=== PATIENT | male | born 1970 | race Caucasian/White ===

== ENCOUNTER 2020-01-06 16:14 | Outpatient (CLI) | payer SELFPAY | END 2020-01-06 16:15 | disposition EMS.NT | LOC: EMS 16:14 | PROVIDERS: ATTEND Surgery | DX: M54.9 Dorsalgia, unspecified (principal); V28.4XXA Motorcycle driver injured in noncollision transport accident in traffic accident, initial encounter; Y92.410 Unspecified street and highway as the place of occurrence of the external cause ==

== ENCOUNTER 2020-08-05 12:09 | Outpatient (CLI) | payer OTHER ==
[2020-08-05 17:59] LABS: BASOPHILS # (AUTO) 0.1 10^3/uL (0.0-0.1); BASOPHILS % (AUTO) 0.8 %; EOSINOPHILS # (AUTO) 0.2 10^3/uL (0.0-0.7); EOSINOPHILS % (AUTO) 2.2 %; HGB - HEMOGLOBIN 15.4 g/dL (14.0-18.0); LYMPHOCYTES % (AUTO) 23.3 %; MEAN CORPUSCULAR HEMOGLOBIN 33.5 pg (27.0-31.0); MEAN CORPUSCULAR HGB CONC 33.7 g/dL (32.0-36.0); MEAN CORPUSCULAR VOLUME 99.3 fL (80.0-94.0); MEAN PLATELET VOLUME 10.5 fL (7.4-11.4); MONOCYTES # (AUTO) 0.4 10^3/uL (0.0-1.0); MONOCYTES % (AUTO) 4.8 %; NEUTROPHILS % (AUTO) 68.6 %; PLT - PLATELET COUNT 248 10^3/uL (130-450); WHITE BLOOD COUNT 8.7 x10^3/uL (4.8-10.8)
[2020-08-05 18:15] LABS: ALBUMIN 4.3 g/dL (3.2-5.5); ALBUMIN/GLOBULIN RATIO 1.9 (1.0-2.2); BILIRUBIN,TOTAL 0.6 mg/dL (0.2-1.0); CALCIUM 9.2 mg/dL (8.5-10.3); TOTAL PROTEIN 6.6 g/dL (6.7-8.2)
[2020-08-05 20:30] LABS: HEMOGLOBIN A1c% 5.4 % (4.27-6.07)
== END 2020-08-05 23:59 | disposition home or self-care (01) ==
LOC: LAB.N 12:09
PROVIDERS: ATTEND Nurse Practitioner
DX: R42 Dizziness and giddiness (principal)
CPT/HCPCS: 36415; 80053; 83036; 85025

== ENCOUNTER 2020-09-01 16:05 | Outpatient (CLI) | payer OTHER ==
[2020-09-01 16:57] VITALS: BP 120/92
--- NOTE | 2020-09-01 16:57 | SLEEP CARE CONSULTATION ---
Information from patient questionnaire entered by Sammie Paul. I have reviewed and concur with the information entered by Sammie Paul. This document represents the service I personally performed and the decisions made by me, Yolanda Arredondo ARNP. History of Present Illness Service Date and Time: 09/01/2020 1605 Reason for Visit: New patient Chief Complaint: reports: Unrefreshed sleep, Snoring, Excessive daytime sleepiness, Observed pauses in breathing, Fatigue Date of Onset: Years Usual bedtime: 8 PM Time it takes to fall asleep: 30 mins Snores at night: Yes Observed to quit breathing while asleep: Yes Sleeps alone due to snoring: No Number of times waking at night: 2 - 3 Reasons for waking at night: reports: Choking, Gasping for air Toss, Turn, or Twitch while sleeping: Yes Recalls having dreams: Yes Usually gets out of bed at: 430 - 5 AM Feels refreshed in the morning: No Morning headache: Yes (just about every morning) Sleepy or fatigued during the day: Yes Ever fallen asleep while driving: No Takes day naps: No Dreams during day naps: No Prior sleep studies: No Additional HPI information: I had the pleasure of seeing DAVIN LERMA today regarding the possibility of him having a sleep disorder. His current complaints are insomnia, loud snoring, observed pauses in breathing, unrefreshed sleep, excessive daytime sleepiness and fatigue. He was not feeling well last week with some lightheadedness, etc and was evaluated at clinic. He was talking to them about his sleep, waking up frequently for no apparent reason, some gasping at night occasionally that reso lves in about 30 seconds as well as some restless legs. It freaks him and his out when he gasps for air. His doctor told him he was overweight as well. He does not wake up feeling rested and is tired throughout the day. He was referred for possible sleep apnea. 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 Patient is and lives in [place]. Have you smoked in the past 12 months: Yes Cigarettes per day (20/pack): 15 Years of smokin Smoking Pack Years: 21.0 Alcohol use: Yes Alcohol amount and frequency: rarely Caffeine use: Yes Caffeine amount and frequency: 4 cups/energy drink Family History Family history of sleep disordered breathing: Yes (Dad) Family Hx Sleep Apnea: Father: Sleep apnea - Treated Allergies and Home Medications Drug allergies reviewed: Yes (NKDA) Home medication list reviewed: Yes (no medications) Review of Systems Weight gain over past 5 years: 10 Weight loss over past 5 years: 0 Cardiovascular: denies: high blood pressure Gastrointestinal: reports: heartburn Neurological: reports: headaches Psychiatric: reports: anxiety, depression, mood disorder (can get set off by small things) Ear/Nose/Throat: reports: wisdom teeth removed. denies: tonsillectomy Endocrine: denies: thyroid disease Immunologic: denies: allergies to food or environment Physical Exam Blood Pressure: 120/92 Cuff size: long Heart Rate: 73 O2 Saturation: 99 Height: 6 ft Weight: 218 lb Body Mass Index: 29.5 BMI Classification: Overweight Neck circumference: 15 (inches) Nostrils: patent to airflow Turbinates: normal Mouth and throat: narrow oropharynx Soft palate: long Hard palate: normal Uvula: normal Uvula visualization: 50% Mallampati Class II Tongue: enlarged in size with teeth kathleen on lateral edges Tonsils: 1+ Neck: normal w/o lymphadenopathy or thyromegaly Heart: regular rate and rhythm Lungs: clear bilaterally Impression and Plan 1. Suspected Obstructive Sleep Apnea-Hypopnea Syndrome, as suggested by a history of loud and irregular snoring, observed cessation of breath while asleep, gasping or choking in sleep, morning headache, frequent awakening during the night, unrefreshed sleep, and excessive daytime sleepiness. Narrow oropharynx and obesity are common predisposing factors for obstructive sleep apnea-hypopnea syndrome. I recommend proceeding to polysomnography to confirm the diagnosis and to assess severity. If the patient has significant sleep disordered breathing, a manual CPAP titration study will also be performed to find the optimal treatment pressure. I informed the patient of what the sleep studies involve and after some discussion, obtained agreement to proceed. The pathophysiology of obstructive sleep apnea-hypopnea syndrome was discussed with the patient and health risks of cardiovascular and cerebrovascular disease if not treated. AASM brochure for obstructive sleep apnea-hypopnea syndrome given and reviewed. Risks of drowsy driving discussed in detail and patient advised to avoid long distance driving and to puller machine at the first sign of drowsiness. Patient agreed to plan. * Schedule polysomnography +- manual CPAP titration study and return in 1-2 weeks after the study to discuss result and initiate therapy. * Avoid long distance driving or driving when feeling sleepy. * Avoid alcohol, sedative and muscle relaxant around bedtime. * Attempt to lose weight. * Review instructions provided by trained office staff on how to prepare for the sleep study. * Return for follow-up after sleep study completed. Counseling Topics: Weight loss health impact Visit Type: In Office Time Spent with Patient (minutes): 33 Provider Statement: I spent 100% of the Face to Face Visit with the patient with greater than 50% spent counseling the patient and coordination of care.
== END 2020-09-01 16:06 | disposition home or self-care (01) ==
LOC: SC 16:05
PROVIDERS: ATTEND Nurse Practitioner Family
DX: G47.10 Hypersomnia, unspecified (principal); R06.83 Snoring; G47.8 Other sleep disorders; R51.9 Headache, unspecified; R06.81 Apnea, not elsewhere classified; E66.3 Overweight; Z68.29 Body mass index [BMI] 29.0-29.9, adult
CPT/HCPCS: 99203; 99212

== ENCOUNTER 2020-09-27 15:43 | Outpatient (CLI) | payer OTHER | END 2020-09-27 15:44 | disposition home or self-care (01) | LOC: SC 15:43 | PROVIDERS: ATTEND Nurse Practitioner Family | DX: G47.33 Obstructive sleep apnea (adult) (pediatric) (principal); R09.02 Hypoxemia; E66.9 Obesity, unspecified; Z68.29 Body mass index [BMI] 29.0-29.9, adult | CPT/HCPCS: 95806 ==

== ENCOUNTER 2020-10-07 16:06 | Outpatient (CLI) | payer OTHER ==
--- NOTE | 2020-10-07 16:38 | SLEEP CARE CONSULTATION ---
Information from patient questionnaire entered by Sammie Paul. I have reviewed and concur with the information entered by Sammie Paul. This document represents the service I personally performed and the decisions made by me, Yolanda Arredondo ARNP. History of Present Illness Service Date and Time: 10/07/2020 1606 Initial [place] Sleepiness Scale score: 9 (in 2020) Current [place] Sleepiness Scale score: 12 Additional HPI information: DAVIN LANDEROSALEXANDRAROSA ELENA returns for follow up and results of the recently performed home sleep study. I explained the pathophysiology behind obstructive sleep apnea. We then spent quite a bit of time discussing different treatment options. For mild obstructive sleep apnea, surgery and oral appliance are alternatives to nasal CPAP therapy but in moderate or severe cases, nasal CPAP is the most effective and reliable treatment. Because apnea is primarily in supine position, then positional management therapy could be effective. Methods discussed such as positioning with pillows, using a T-shirt with tennis balls in the back, and shown commercial products that have a pillow format on back to prevent supine sleep. I reviewed the impact of weight changes on sleep apnea and strongly recommended losing weight. After some discussion, the patient opted to go with the nasal CPAP therapy. Nasal autoCPAP set at [id number] will be ordered with rationale explained. A manual titration study will be ordered if unable to find optimal pressure with office adjustments. I explained how CPAP machine works with sample devices [employer] Dreamstation and [employer] [id number] and what to expect when using the machine. Using CPAP every night in order to get used to it was emphasized. Patient advised to put CPAP mask on before getting into bed so as not to fall asleep without CPAP. To assist acclimation to CPAP use, it could also be used for a short time during day while reading or watching TV. The patient was instructed to call the CPAP supplier to discuss any mechanical problem that may occur. If the mask given is uncomfortable or is difficult to keep on through the night even with adjustment, contact the CPAP supplier as many will replace with another mask style if notified before 30 days. If snoring or perceives is not getting enough air or too much air from the machine, notify this office. [facility] patient education PAP tips reviewed and given to patient. Patient counseled not drink alcohol less than 4 hours before bedtime as it can increase snoring and apnea. Patient was cautioned about risks of drowsy driving until sleepiness symptoms resolve. Sleep Study - Results Type of Sleep Study: Home sleep study Prior sleep studies: No Polysomnography/Home Sleep Study results: Physician Impression: The quality of the study is good. The length of the study is adequate (> 240 minutes). Please also see the tabulated and graphic data. 1. Obstructive Sleep Apnea-Hypopnea (ICD-10 G47.33), mild, with an AHI of 5.6/hr and james SaO2 of 87%. During the study, the patient had 29 apneas (29 obstructive, 0 central, 0 mixed) and 12 hypopneas. The longest episode lasted 51.5 seconds. The respiratory events occurred almost exclusively during supine sleep (supine AHI was 6.9 and non-supine, 1.17). 2. Hypoxemia (ICD-10 R09.02), mild, with the lowest oxygen saturation of 87 % and 16.1 minutes with SaO2 under 90%. Baseline oxygen saturation was normal (Average oxygen saturation was 92% Allergies and Home Medications Home medication list reviewed: Yes (no changes) Review of Systems Review of systems same as previous: Yes (no changes) Physical Exam Heart Rate: 84 O2 Saturation: 97 Height: 6 ft Weight: 214 lb Body Mass Index: 29.0 BMI Classification: Overweight Impression and Plan 1. Obstructive Sleep Apnea-Hypopnea Syndrome, mild, with lowest oxygen saturation of 87%. Obviously this is the cause of the patients symptoms of unrefreshed sleep, and excessive daytime sleepiness. Positive pressure therapy could benefit his overall health and reduce risks for cardiovascular and cerebrovascular adverse events. He states he sleeps mostly on his back and his efforts to try to stay on his sides has been unsuccessful in the past. He has tried an oral appliance for snoring that he got OTC that did not work well for him. As mentioned above, the patient will be started on nasal autoCPAP therapy with pressure set at 4-15 cmH2O. A manual titration study will be completed if unable to find optimal treatment pressure with office adjustments. Compliance guidelines also reviewed. A copy of compliance guidelines will be given for reference at check out. Because the apnea is more severe supine, I instructed to avoid sleeping supine using pillow positioning until able to start CPAP use. * Nasal auto CPAP therapy, pressure at 4-15 cm H2O * Attempt to lose weight. * Avoid alcohol consumption near bedtime. * Avoid supine sleep until using CPAP. * The patient is again cautioned about driving until sleepiness completely resolves. * Return one month after CPAP obtained. I will assess response to therapy and compliance at that time. Counseling Topics: Weight loss health impact Visit Type: In Office Time Spent with Patient (minutes): 21 Provider Statement: I spent 100% of the Face to Face Visit with the patient with greater than 50% spent counseling the patient and coordination of care.
--- OUTSIDE RECORDS SUMMARY | 2020-10-19 19:12 | EXTERNAL MEDICAL SUMMARY RPT | Continuity of Care Document ---
:1970 Demographics Phone Unavailable Preferred Language Unknown Marital Status Unknown Mormonism Affiliation Unknown Race Unknown Ethnic Group Unknown Author Organization [facility] Address [address] [place] [address] Phone Care Team Providers Name Role Phone PA-C Unavailable Unavailable SENSITIZER Unavailable Unavailable [facility] Unavailable Unavailable MD Unavailable Unavailable Problems date description facility [id number] Details of drug misuse behavior All [id number] Dizziness and giddiness All [id number] CBC W/Diff/Plt All [id number] COMPREHENSIVE METABOLIC PANEL All [id number] HEMOGLOBIN, GLYCOSYLATED (A1C) All [id number] Tobacco use and exposure All [id number] Alcohol use All [id number] Current every day smoker All [id number] Lightheadedness All [id number] Tobacco smoking status NHIS All [id number] Total score? All Results test status date ordered by attending specimen [facility] HEMOGLOBIN_A1c_ unknown [id number] unknown unknown unknown T unknown [id number] unknown unknown unknown ALBUMIN_GLOBULIN_RATIO unknown [id number] unknown unknown unknown T unknown 47579809 unknown unknown unknown T unknown 08004787 unknown unknown unknown ALKALINE_PHOSPHATASE unknown [id number] unknown unknown un known ALT_ALANINE_AMINOTRANS unknown 05478937 unknown unknown unknown FERASE T unknown 85708052 unknown unknown unknown T unknown 71246475 unknown unknown unknown T unknown 13584138 unknown unknown unknown T unknown [id number] unknown unknown unknown BASOPHILS_AUTO_ unknown [id number] unknown unknown unknown BILIRUBIN_TOTAL unknown 90814253 unknown unknown unknown T unknown [id number] unknown unknown unknown T unknown [id number] unknown unknown unknown T unknown [id number] unknown unknown unknown T unknown 65432256 unknown unknown unknown T unknown [id number] unknown unknown unknown ESTIMATED_AVERAGE_GLUC unknown 67665057 unknown unknown unknown OSE T unknown [id number] unknown unknown unknown EOSINOPHILS_AUTO_ unknown 19576030 unknown unknown unkno wn T unknown [id number] unknown unknown unknown T unknown 02261664 unknown unknown unknown GFR_-_MDRD unknown 60529119 unknown unknown unknown T unknown [id number] unknown unknown unknown T unknown 60978369 unknown unknown unknown T unknown [id number] unknown unknown unknown T unknown [id number] unknown unknown unknown T unknown [id number] unknown unknown unknown T unknown 09186046 unknown unknown unknown T unknown [id number] unknown unknown unknown LYMPHOCYTES_AUTO_ unknown 40351376 unknown unknown unkno wn T unknown [id number] unknown unknown unknown T unknown [id number] unknown unknown unknown T unknown 05710546 unknown unknown unknown T unknown [id number] unknown unknown unknown MONOCYTES_AUTO_ unknown [id number] unknown unknown unknown T unknown [id number] unknown unknown unknown T unknown 81971332 unknown unknown unknown T unknown [id number] unknown unknown unknown NEUTROPHILS_AUTO_ unknown [id number] unknown unknown unkno wn T unknown [id number] unknown unknown unknown T unknown 64000698 unknown unknown unknown T unknown [id number] unknown unknown unknown T unknown 81606975 unknown unknown unknown T unknown [id number] unknown unknown unknown T unknown 81142234 unknown unknown unknown red_blood_cell_distrib unknown 68089635 unknown unknown unknown ution_width mean_corpuscular_hemog unknown 63758672 unknown unknown unknown lobin_RBC calcium_serum unknown 70041394 unknown unknown unknown chloride_serum unknown 03651082 unknown unknown unknown albumin_globulin_ratio unknown 41017411 unknown unknown unknown _serum sodium_serum unknown 12566157 unknown unknown unknown mean_corpuscular_hemog unknown 84542313 unknown unknown unknown lobin_concentration_rbc Alanine_aminotransfera unknown [id number] unknown unknown unknown se_Enzymatic_activity_v olume_in_Serum_or_Plasm a Albumin_Mass_volume_in unknown 75755644 unknown unknown unknown _Serum_or_Plasma Albumin_Globulin_Mass_ unknown 67487352 unknown unknown unknown Ratio_in_Serum_or_Plasm a Alkaline_phosphatase_E unknown 29898763 unknown unknown unknown nzymatic_activity_volum e_in_Blood creatinine_serum unknown 24331022 unknown unknown unknow n Estimated_Average_Gluc unknown 33957792 unknown unknown unknown ose Anion_gap_4_in_Serum_o unknown 42346734 unknown unknown unknown r_Plasma Aspartate_aminotransfe unknown 61142507 unknown unknown unknown rase_Enzymatic_activity _volume_in_Serum_or_Pla sma Bilirubin.total_Mass_v unknown 56992916 unknown unknown unknown olume_in_Serum_or_Plasm a albumin_serum unknown 13696123 unknown unknown unknown Calcium_Moles_volume_i unknown 48601244 unknown unknown unknown n_Serum_or_Plasma carbon_dioxide_serum_t unknown 18927709 unknown unknown unknown otal Chloride_Moles_volume_ unknown 98181074 unknown unknown unknown in_Serum_or_Plasma Creatinine_Mass_volume unknown 92175598 unknown unknown unknown _in_Serum_or_Plasma Globulin_Mass_volume_i unknown 79176693 unknown unknown unknown n_Serum Glucose_Mass_volume_in unknown 66167072 unknown unknown unknown _Serum_or_Plasma neutrophil_count_blood unknown 86916259 unknown unknown unknown lymphocyte_count_blood unknown 04639218 unknown unknown unknown monocyte_count_blood unknown 03935029 unknown unknown un known basophil_count_blood unknown 69940624 unknown unknown un known Glucose_mean_value_Mas unknown 71510604 unknown unknown unknown s_volume_in_Blood_Estim ated_from_glycated_hemo globin mean_platelet_volume unknown 49700174 unknown unknown un known anion_gap_serum unknown 19088377 unknown unknown unknown hemoglobin_A1C_blood_a unknown 62166621 unknown unknown unknown s_of_total_hemoglobin eosinophil_count_blood unknown 29885957 unknown unknown unknown Protein_Mass_volume_in unknown 17449754 unknown unknown unknown _Serum_or_Plasma Sodium_Moles_volume_in unknown 64483341 unknown unknown unknown _Serum_or_Plasma alkaline_phosphatase_s unknown 14059199 unknown unknown unknown bernabe globulin_serum unknown 90458749 unknown unknown unknown Urea_nitrogen_Mass_vol unknown 39048643 unknown unknown unknown ume_in_Serum_or_Plasma mean_corpuscular_volum unknown 37584191 unknown unknown unknown e_RBC potassium_blood unknown 63027987 unknown unknown unknown blood_glucose unknown 57669720 unknown unknown unknown protein_total_serum unknown 80947084 unknown unknown unk nown blood_glucose_finger_s unknown 52437520 unknown unknown unknown tick aspartate_aminotransfe unknown 76698036 unknown unknown unknown rase_SGOT_serum carbon_dioxide_serum_t unknown 89732068 unknown unknown unknown otal alanine_aminotransfera unknown 65692495 unknown unknown unknown se_SGPT_serum bilirubin_serum_total unknown 41292250 unknown unknown u nknown Hematocrit_Volume_Frac unknown 28630127 unknown unknown unknown tion_of_Blood_by_Automa ted_count Hemoglobin_A1c_Hemoglo unknown 35044427 unknown unknown unknown bin_total_in_Blood_-_ Glomerular_filtration_ unknown 43025756 unknown unknown unknown rate_1.73_sq_M.predicte d_among_non-blacks_Volu me_Rate_Area_in_Serum_P lasma_or_Blood_by_Creat inine-based_formula_MDR D_ blood_glucose_finger_s unknown 57756962 unknown unknown unknown tick potassium_blood unknown 02082058 unknown unknown unknown hematocrit_blood unknown 35786355 unknown unknown unknow n hemoglobin_blood unknown 90836675 unknown unknown unknow n platelet_count unknown 39495888 unknown unknown unknown Glomerular_Filtration_ unknown 21034780 unknown unknown unknown rate Leukocytes_volume_in_B unknown 40102524 unknown unknown unknown lood_by_Automated_count erythrocyte_RBC_count unknown 25462134 unknown unknown u nknown leukocyte_count_blood unknown 80231795 unknown unknown u nknown Basophils_volume_in_Bl unknown 99517222 unknown unknown unknown ood_by_Manual_count eosinophil_count_blood unknown 60956484 unknown unknown unknown Hemoglobin_Mass_volume unknown 21509571 unknown unknown unknown _in_Blood lymphocyte_count_blood unknown 60645895 unknown unknown unknown monocyte_count_blood unknown 03667761 unknown unknown un known neutrophil_count_blood unknown 22161394 unknown unknown unknown Platelet_mean_volume_E unknown 27743923 unknown unknown unknown ntitic_volume_in_Blood_ by_Rees-Micki Platelets_volume_in_Bl unknown 00144226 unknown unknown unknown ood_by_Automated_count MCH_Entitic_mass_by_Au unknown 47491577 unknown unknown unknown tomated_count MCV_Entitic_volume_by_ unknown 40598869 unknown unknown unknown Automated_count Erythrocyte_distributi unknown 42074220 unknown unknown unknown on_width_Ratio_by_Autom ated_count Erythrocytes_volume_in unknown 70634361 unknown unknown unknown _Blood_by_Automated_cou nt urea_nitrogen_blood unknown 43627960 unknown unknown unk nown T unknown 62558058 unknown unknown unknown BASOPHILS_AUTO_ unknown 03317182 unknown unknown unknown T unknown 51803145 unknown unknown unknown EOSINOPHILS_AUTO_ unknown 13219963 unknown unknown unkno wn T unknown 61895679 unknown unknown unknown T unknown 20131633 unknown unknown unknown T unknown 16554149 unknown unknown unknown LYMPHOCYTES_AUTO_ unknown 15610205 unknown unknown unkno wn T unknown 27483514 unknown unknown unknown T unknown 27618268 unknown unknown unknown T unknown 10504204 unknown unknown unknown T unknown 88509634 unknown unknown unknown MONOCYTES_AUTO_ unknown 52851567 unknown unknown unknown T unknown 31018363 unknown unknown unknown T unknown 95424663 unknown unknown unknown NEUTROPHILS_AUTO_ unknown 06546126 unknown unknown unkno wn T unknown 24116427 unknown unknown unknown T unknown 37086237 unknown unknown unknown T unknown 33990355 unknown unknown unknown T unknown 34952909 unknown unknown unknown red_blood_cell_distrib unknown 74623748 unknown unknown unknown ution_width mean_corpuscular_hemog unknown 34661774 unknown unknown unknown lobin_RBC mean_corpuscular_hemog unknown 19241402 unknown unknown unknown lobin_concentration_rbc neutrophil_count_blood unknown 84291373 unknown unknown unknown lymphocyte_count_blood unknown 72532933 unknown unknown unknown monocyte_count_blood unknown 87216922 unknown unknown un known basophil_count_blood unknown 97547100 unknown unknown un known mean_platelet_volume unknown 68178689 unknown unknown un known eosinophil_count_blood unknown 97903133 unknown unknown unknown mean_corpuscular_volum unknown 69554522 unknown unknown unknown e_RBC blood_glucose_finger_s unknown 40215656 unknown unknown unknown tick Hematocrit_Volume_Frac unknown 43145165 unknown unknown unknown tion_of_Blood_by_Automa ted_count blood_glucose_finger_s unknown 92359172 unknown unknown unknown tick hematocrit_blood unknown 90685672 unknown unknown unknow n hemoglobin_blood unknown 68812909 unknown unknown unknow n platelet_count unknown 17369551 unknown unknown unknown Leukocytes_volume_in_B unknown 17364772 unknown unknown unknown lood_by_Automated_count erythrocyte_RBC_count unknown 31883850 unknown unknown u nknown leukocyte_count_blood unknown 17670574 unknown unknown u nknown Basophils_volume_in_Bl unknown 34005567 unknown unknown unknown ood_by_Manual_count eosinophil_count_blood unknown 04275702 unknown unknown unknown Hemoglobin_Mass_volume unknown 76703195 unknown unknown unknown _in_Blood lymphocyte_count_blood unknown 42913645 unknown unknown unknown monocyte_count_blood unknown 67975894 unknown unknown un known neutrophil_count_blood unknown 16789962 unknown unknown unknown Platelet_mean_volume_E unknown 11179512 unknown unknown unknown ntitic_volume_in_Blood_ by_Rees-Micki Platelets_volume_in_Bl unknown 59751341 unknown unknown unknown ood_by_Automated_count MCH_Entitic_mass_by_Au unknown 34146042 unknown unknown unknown tomated_count MCV_Entitic_volume_by_ unknown 66422532 unknown unknown unknown Automated_count Erythrocyte_distributi unknown 48542832 unknown unknown unknown on_width_Ratio_by_Autom ated_count Erythrocytes_volume_in unknown 48502480 unknown unknown unknown _Blood_by_Automated_cou nt blood_glucose_finger_s unknown 69923337 unknown unknown unknown tick blood_glucose_finger_s unknown 65671902 unknown unknown unknown tick HEMOGLOBIN_A1c_ unknown 69792089 unknown unknown unknown T unknown 44390862 unknown unknown unknown ALBUMIN_GLOBULIN_RATIO unknown 19411440 unknown unknown unknown T unknown 61464920 unknown unknown unknown T unknown 49046270 unknown unknown unknown ALKALINE_PHOSPHATASE unknown 25191118 unknown unknown un known ALT_ALANINE_AMINOTRANS unknown 66127956 unknown unknown unknown FERASE T unknown 39177100 unknown unknown unknown T unknown 28932595 unknown unknown unknown T unknown 78736002 unknown unknown unknown T unknown 54907628 unknown unknown unknown BASOPHILS_AUTO_ unknown 27723138 unknown unknown unknown BILIRUBIN_TOTAL unknown 43517459 unknown unknown unknown T unknown 85136866 unknown unknown unknown T unknown 97517939 unknown unknown unknown T unknown 66792888 unknown unknown unknown T unknown 09103234 unknown unknown unknown T unknown 77051596 unknown unknown unknown ESTIMATED_AVERAGE_GLUC unknown 45208494 unknown unknown unknown OSE T unknown 23928732 unknown unknown unknown EOSINOPHILS_AUTO_ unknown 79717192 unknown unknown unkno wn T unknown 82378053 unknown unknown unknown T unknown 53926322 unknown unknown unknown GFR_-_MDRD unknown 78575969 unknown unknown unknown T unknown 69226543 unknown unknown unknown T unknown 35774792 unknown unknown unknown T unknown 95061554 unknown unknown unknown T unknown 73657169 unknown unknown unknown T unknown 29221106 unknown unknown unknown T unknown 41371128 unknown unknown unknown T unknown 18147397 unknown unknown unknown LYMPHOCYTES_AUTO_ unknown 83751419 unknown unknown unkno wn T unknown 37904652 unknown unknown unknown T unknown 66393790 unknown unknown unknown T unknown 80231663 unknown unknown unknown T unknown 91908622 unknown unknown unknown MONOCYTES_AUTO_ unknown 94080805 unknown unknown unknown T unknown 27996679 unknown unknown unknown T unknown 70806947 unknown unknown unknown T unknown 62074792 unknown unknown unknown NEUTROPHILS_AUTO_ unknown 10077462 unknown unknown unkno wn T unknown 19137736 unknown unknown unknown T unknown 99340432 unknown unknown unknown T unknown 35326802 unknown unknown unknown T unknown 47365971 unknown unknown unknown T unknown 42527469 unknown unknown unknown T unknown 41334861 unknown unknown unknown red_blood_cell_distrib unknown 70121824 unknown unknown unknown ution_width mean_corpuscular_hemog unknown 71359027 unknown unknown unknown lobin_RBC calcium_serum unknown 68348951 unknown unknown unknown chloride_serum unknown 05991866 unknown unknown unknown albumin_globulin_ratio unknown 90468126 unknown unknown unknown _serum sodium_serum unknown 27848601 unknown unknown unknown mean_corpuscular_hemog unknown 43773355 unknown unknown unknown lobin_concentration_rbc Alanine_aminotransfera unknown 88505252 unknown unknown unknown se_Enzymatic_activity_v olume_in_Serum_or_Plasm a Albumin_Mass_volume_in unknown 95744694 unknown unknown unknown _Serum_or_Plasma Albumin_Globulin_Mass_ unknown 20068838 unknown unknown unknown Ratio_in_Serum_or_Plasm a Alkaline_phosphatase_E unknown 35491229 unknown unknown unknown nzymatic_activity_volum e_in_Blood creatinine_serum unknown 49472238 unknown unknown unknow n Estimated_Average_Gluc unknown 97441470 unknown unknown unknown ose Anion_gap_4_in_Serum_o unknown 30468380 unknown unknown unknown r_Plasma Aspartate_aminotransfe unknown 47890997 unknown unknown unknown rase_Enzymatic_activity _volume_in_Serum_or_Pla sma Bilirubin.total_Mass_v unknown 56237799 unknown unknown unknown olume_in_Serum_or_Plasm a albumin_serum unknown 61794643 unknown unknown unknown Calcium_Moles_volume_i unknown 42214527 unknown unknown unknown n_Serum_or_Plasma carbon_dioxide_serum_t unknown 64705583 unknown unknown unknown otal Chloride_Moles_volume_ unknown 26423392 unknown unknown unknown in_Serum_or_Plasma Creatinine_Mass_volume unknown 82369036 unknown unknown unknown _in_Serum_or_Plasma Globulin_Mass_volume_i unknown 96095068 unknown unknown unknown n_Serum Glucose_Mass_volume_in unknown 93367915 unknown unknown unknown _Serum_or_Plasma neutrophil_count_blood unknown 20833335 unknown unknown unknown lymphocyte_count_blood unknown 03296367 unknown unknown unknown monocyte_count_blood unknown 14359300 unknown unknown un known basophil_count_blood unknown 01764071 unknown unknown un known Glucose_mean_value_Mas unknown 70053200 unknown unknown unknown s_volume_in_Blood_Estim ated_from_glycated_hemo globin mean_platelet_volume unknown 57372013 unknown unknown un known anion_gap_serum unknown 13393223 unknown unknown unknown hemoglobin_A1C_blood_a unknown 22422411 unknown unknown unknown s_of_total_hemoglobin eosinophil_count_blood unknown 33979725 unknown unknown unknown Protein_Mass_volume_in unknown 08234542 unknown unknown unknown _Serum_or_Plasma Sodium_Moles_volume_in unknown 42187732 unknown unknown unknown _Serum_or_Plasma alkaline_phosphatase_s unknown 02355221 unknown unknown unknown bernabe globulin_serum unknown 68624662 unknown unknown unknown Urea_nitrogen_Mass_vol unknown 75560507 unknown unknown unknown ume_in_Serum_or_Plasma mean_corpuscular_volum unknown 82458847 unknown unknown unknown e_RBC potassium_blood unknown 81674255 unknown unknown unknown blood_glucose unknown 60701396 unknown unknown unknown protein_total_serum unknown 32426533 unknown unknown unk nown blood_glucose_finger_s unknown 12214996 unknown unknown unknown tick aspartate_aminotransfe unknown 79058255 unknown unknown unknown rase_SGOT_serum carbon_dioxide_serum_t unknown 72058152 unknown unknown unknown otal alanine_aminotransfera unknown 47434126 unknown unknown unknown se_SGPT_serum bilirubin_serum_total unknown 73615047 unknown unknown u nknown Hematocrit_Volume_Frac unknown 99085078 unknown unknown unknown tion_of_Blood_by_Automa ted_count Hemoglobin_A1c_Hemoglo unknown 94938567 unknown unknown unknown bin_total_in_Blood_-_ Glomerular_filtration_ unknown 93254000 unknown unknown unknown rate_1.73_sq_M.predicte d_among_non-blacks_Volu me_Rate_Area_in_Serum_P lasma_or_Blood_by_Creat inine-based_formula_MDR D_ blood_glucose_finger_s unknown 86957127 unknown unknown unknown tick potassium_blood unknown 98935985 unknown unknown unknown hematocrit_blood unknown 34041389 unknown unknown unknow n hemoglobin_blood unknown 52369534 unknown unknown unknow n platelet_count unknown 69931113 unknown unknown unknown Glomerular_Filtration_ unknown 84592023 unknown unknown unknown rate Leukocytes_volume_in_B unknown 99896123 unknown unknown unknown lood_by_Automated_count erythrocyte_RBC_count unknown 95450394 unknown unknown u nknown leukocyte_count_blood unknown 94326253 unknown unknown u nknown Basophils_volume_in_Bl unknown 10323744 unknown unknown unknown ood_by_Manual_count eosinophil_count_blood unknown 40746490 unknown unknown unknown Hemoglobin_Mass_volume unknown 64814360 unknown unknown unknown _in_Blood lymphocyte_count_blood unknown 44188314 unknown unknown unknown monocyte_count_blood unknown 80778948 unknown unknown un known neutrophil_count_blood unknown 54661838 unknown unknown unknown Platelet_mean_volume_E unknown 26462539 unknown unknown unknown ntitic_volume_in_Blood_ by_Rees-Micki Platelets_volume_in_Bl unknown 10898406 unknown unknown unknown ood_by_Automated_count MCH_Entitic_mass_by_Au unknown 93645248 unknown unknown unknown tomated_count MCV_Entitic_volume_by_ unknown 90917292 unknown unknown unknown Automated_count Erythrocyte_distributi unknown 33276467 unknown unknown unknown on_width_Ratio_by_Autom ated_count Erythrocytes_volume_in unknown 98832392 unknown unknown unknown _Blood_by_Automated_cou nt urea_nitrogen_blood unknown 08969470 unknown unknown [facility] observation status value reference units lab code abn ormal line range notes All HEMOGLOBIN_A unknown 5.4 unknown % A1c unknown unknown 1c_ All T unknown 5.4 unknown % A1c_ unknown unkn own All ALBUMIN_GLOB unknown 1.9 unknown AGRATIO unknow n unknown ULIN_RATIO All T unknown 4.3 unknown g/dL ALB unknown unkn own All T unknown 60 unknown U/L ALK_PHOS unknown un known All ALKALINE_PHO unknown 60 unknown U/L ALP unknown unknown SPHATASE All ALT_ALANINE_ unknown 31 unknown U/L ALT unknown unknown AMINOTRANSFER ASE All T unknown 31 unknown U/L ALT_SGPT unknown un known _ All T unknown 21 unknown U/L AST unknown unkn own All T unknown 1.9 unknown A_G_RATI unknown un known O All T unknown 0.1 10 unknown BASO_AUT unknown un known 3/UL O_ All BASOPHILS_AU unknown 0.1 10 unknown BA_ unknown unknown TO_ 3/UL All BILIRUBIN_TO unknown 0.6 unknown mg/dL BILIT unknown unknown CAITLIN All T unknown 18 unknown mg/dL BUN unknown unkn own All T unknown 9.2 unknown mg/dL CA unknown unkn own All T unknown 105 unknown mmol/L CL unknown unkn own All T unknown 25 unknown mmol/L CO2 unknown unkn own All T unknown 1.0 unknown mg/dL CREAT unknown unkn own All ESTIMATED_AV unknown 108 unknown mg/dL EAG unknown unknown ERAGE_GLUCOSE All T unknown 0.2 10 unknown EOS_AUTO unknown un known 3/UL _ All EOSINOPHILS_ unknown 0.2 10 unknown EO_ unknown unknown AUTO_ 3/UL All T unknown 108 unknown mg/dL EST.AVG. unknown un known GLUC All T unknown 10.0 unknown GAP unknown unkn own All GFR_-_MDRD unknown 79 unknown mL/min GFR unknown unknown All T unknown 79 unknown mL/min GFR_-_MD unknown un known RD All T unknown 2.3 unknown GLOB unknown unkn own All T unknown 114 unknown mg/dL GLU unknown unkn own All T unknown 45.7 unknown % HCT unknown unkn own All T unknown 15.4 unknown g/dL HGB unknown unkn own All T unknown 4.0 unknown meq/L K unknown unkn own All T unknown 2.0 10 unknown LYMPH_AU unknown un known 3/UL TO_ All LYMPHOCYTES_ unknown 2.0 10 unknown LY_ unknown unknown AUTO_ 3/UL All T unknown 33.5 unknown pg MCH unknown unkn own All T unknown 33.7 unknown g/dL MCHC unknown unkn own All T unknown 99.3 unknown fL MCV unknown unkn own All T unknown 0.4 10 unknown MONO_AUT unknown un known 3/UL O_ All MONOCYTES_AU unknown 0.4 10 unknown MO_ unknown unknown TO_ 3/UL All T unknown 10.5 unknown fL MPV unknown unkn own All T unknown 140 unknown mmol/L NA unknown unkn own All T unknown 6.0 10 unknown NEUT_AUT unknown un known 3/UL O_ All NEUTROPHILS_ unknown 6.0 10 unknown NE_ unknown unknown AUTO_ 3/UL All T unknown 248 10 unknown PLT unknown unkn own 3/UL All T unknown 6.6 unknown g/dL PRO_TOTA unknown un known L All T unknown 4.60 unknown RBC unknown unkn own 10 6/UL All T unknown 12.0 unknown % RDW unknown unkn own All T unknown 0.6 unknown mg/dL TOTAL_BI unknown un known LI All T unknown 8.7 unknown WBC unknown unkn own X10 3/UL All red_blood_ce unknown 12.0 unknown % _1030 unknown unknown ll_distributi on_width All mean_corpusc unknown 33.5 unknown pg _1031 unknown unknown ular_hemoglob in_RBC All calcium_seru unknown 9.2 unknown mg/dL _11 unknown unknown m All chloride_ser unknown 105 unknown mmol/L _13 unknown unknown um All albumin_glob unknown 1.9 unknown _146 unknown unknown ulin_ratio_se rum All sodium_serum unknown 140 unknown mmol/L _159 unknown unknown All mean_corpusc unknown 33.7 unknown g/dL _17029 unknown unknown ular_hemoglob in_concentrat ion_rbc All Alanine_amin unknown 31 unknown U/L _1742-6 unknow n unknown otransferase_ Enzymatic_act ivity_volume_ in_Serum_or_P lasma All Albumin_Mass unknown 4.3 unknown g/dL _1751-7 unknow n unknown _volume_in_Se rum_or_Plasma All Albumin_Glob unknown 1.9 unknown _1759-0 unknow n unknown ulin_Mass_Rat io_in_Serum_o r_Plasma All Alkaline_pho unknown 60 unknown U/L _1783-0 unknow n unknown sphatase_Enzy matic_activit y_volume_in_B lood All creatinine_s unknown 1.0 unknown mg/dL _18 unknown unknown bernabe All Estimated_Av unknown 108 unknown mg/dL _180195 unknow n unknown erage_Glucose All Anion_gap_4_ unknown 10.0 unknown _1863-0 unknow n unknown in_Serum_or_P lasma All Aspartate_am unknown 21 unknown U/L _1920-8 unknow n unknown inotransferas e_Enzymatic_a ctivity_volum e_in_Serum_or _Plasma All Bilirubin.to unknown 0.6 unknown mg/dL _1974-2 unknow n unknown tal_Mass_volu me_in_Serum_o r_Plasma All albumin_seru unknown 4.3 unknown g/dL _2 unknown unknown m All Calcium_Mole unknown 9.2 unknown mg/dL _1999-8 unknow n unknown s_volume_in_S erum_or_Plasm a All carbon_dioxi unknown 25 unknown mmol/L _8-9 unknow n unknown de_serum_tota l All Chloride_Mol unknown 105 unknown mmol/L _5-0 unknow n unknown es_volume_in_ Serum_or_Plas ma All Creatinine_M unknown 1.0 unknown mg/dL _2160-0 unknow n unknown ass_volume_in _Serum_or_Pla sma All Globulin_Mas unknown 2.3 unknown _2336-6 unknow n unknown s_volume_in_S bernabe All Glucose_Mass unknown 114 unknown mg/dL _2345-7 unknow n unknown _volume_in_Se rum_or_Plasma All neutrophil_c unknown 6.0 10 unknown _2418 unknown unknown ount_blood 3/UL All lymphocyte_c unknown 2.0 10 unknown _2420 unknown unknown ount_blood 3/UL All monocyte_cou unknown 0.4 10 unknown _2422 unknown unknown nt_blood 3/UL All basophil_cou unknown 0.1 10 unknown _2427 unknown unknown nt_blood 3/UL All Glucose_mean unknown 108 unknown mg/dL _27353-2 unkno wn unknown _value_Mass_v olume_in_Bloo d_Estimated_f rom_glycated_ hemoglobin All mean_platele unknown 10.5 unknown fL _2784 unknown unknown t_volume All anion_gap_se unknown 10.0 unknown _279 unknown unknown rum All hemoglobin_A unknown 5.4 unknown % _28 unknown unknown 1C_blood_as_o f_total_hemog lobin All eosinophil_c unknown 0.2 10 unknown _285 unknown unknown ount_blood 3/UL All Protein_Mass unknown 6.6 unknown g/dL _2885-2 unknow n unknown _volume_in_Se rum_or_Plasma All Sodium_Moles unknown 140 unknown mmol/L _2951-2 unknow n unknown _volume_in_Se rum_or_Plasma All alkaline_pho unknown 60 unknown U/L _3 unknown unknown sphatase_seru m All globulin_ser unknown 2.3 unknown _3059 unknown unknown um All Urea_nitroge unknown 18 unknown mg/dL _3094-0 unknow n unknown n_Mass_volume _in_Serum_or_ Plasma All mean_corpusc unknown 99.3 unknown fL _315 unknown unknown ular_volume_R BC All potassium_bl unknown 4.0 unknown meq/L _3483 unknown unknown ood All blood_glucos unknown 114 unknown mg/dL _3565 unknown unknown e All protein_tota unknown 6.6 unknown g/dL _36 unknown unknown l_serum All blood_glucos unknown 135 unknown _3889 unknown unknown e_finger_stic k All aspartate_am unknown 21 unknown U/L _39 unknown unknown inotransferas e_SGOT_serum All carbon_dioxi unknown 25 unknown mmol/L _3962 unknown unknown de_serum_tota l All alanine_amin unknown 31 unknown U/L _40 unknown unknown otransferase_ SGPT_serum All bilirubin_se unknown 0.6 unknown mg/dL _43 unknown unknown rum_total All Hematocrit_V unknown 45.7 unknown % _4544-3 unknow n unknown olume_Fractio n_of_Blood_by _Automated_co unt All Hemoglobin_A unknown 5.4 unknown % _4548-4 unknow n unknown 1c_Hemoglobin _total_in_Blo od_-_ All Glomerular_fi unknown 79 unknown mL/min _48642-3 unkno wn unknown ltration_rate _1.73_sq_M.pr edicted_among _non-blacks_V olume_Rate_Ar ea_in_Serum_P lasma_or_Bloo d_by_Creatini ne-based_form ula_MDRD_ All blood_glucos unknown 135 unknown _5914-7 unknow n unknown e_finger_stic k All potassium_bl unknown 4.0 unknown meq/L _6298-4 unknow n unknown ood All hematocrit_b unknown 45.7 unknown % _64 unknown unknown lood All hemoglobin_b unknown 15.4 unknown g/dL _65 unknown unknown lood All platelet_cou unknown 248 10 unknown _66 unknown unknown nt 3/UL All Glomerular_F unknown 79 unknown mL/min _66455 unknown unknown iltration_rat e All Leukocytes_v unknown 8.7 unknown _6690-2 unknow n unknown olume_in_Bloo X10 d_by_Automate 3/UL d_count All erythrocyte_ unknown 4.60 unknown _67 unknown unknown RBC_count 10 6/UL All leukocyte_co unknown 8.7 unknown _68 unknown unknown unt_blood X10 3/UL All Basophils_vo unknown 0.1 10 unknown _705-4 unknown unknown lume_in_Blood 3/UL _by_Manual_co unt All eosinophil_c unknown 0.2 10 unknown _712-0 unknown unknown ount_blood 3/UL All Hemoglobin_M unknown 15.4 unknown g/dL _718-7 unknown unknown ass_volume_in _Blood All lymphocyte_c unknown 2.0 10 unknown _732-8 unknown unknown ount_blood 3/UL All monocyte_cou unknown 0.4 10 unknown _743-5 unknown unknown nt_blood 3/UL All neutrophil_c unknown 6.0 10 unknown _752-6 unknown unknown ount_blood 3/UL All Platelet_mea unknown 10.5 unknown fL _776-5 unknown unknown n_volume_Enti tic_volume_in _Blood_by_Ree s-Micki All Platelets_vo unknown 248 10 unknown _777-3 unknown unknown lume_in_Blood 3/UL _by_Automated _count All MCH_Entitic_ unknown 33.5 unknown pg _785-6 unknown unknown mass_by_Autom ated_count All MCV_Entitic_ unknown 99.3 unknown fL _787-2 unknown unknown volume_by_Aut omated_count All Erythrocyte_ unknown 12.0 unknown % _788-0 unknown unknown distribution_ width_Ratio_b y_Automated_c ount All Erythrocytes unknown 4.60 unknown _789-8 unknown unknown _volume_in_Bl 10 6/UL ood_by_Automa ted_count All urea_nitroge unknown 18 unknown mg/dL _9 unknown unknown n_blood All T unknown 0.1 10 unknown BASO_AUT unknown un known 3/UL O_ All BASOPHILS_AU unknown 0.1 10 unknown BA_ unknown unknown TO_ 3/UL All T unknown 0.2 10 unknown EOS_AUTO unknown un known 3/UL _ All EOSINOPHILS_ unknown 0.2 10 unknown EO_ unknown unknown AUTO_ 3/UL All T unknown 45.7 unknown % HCT unknown unkn own All T unknown 15.4 unknown g/dL HGB unknown unkn own All T unknown 2.0 10 unknown LYMPH_AU unknown un known 3/UL TO_ All LYMPHOCYTES_ unknown 2.0 10 unknown LY_ unknown unknown AUTO_ 3/UL All T unknown 33.5 unknown pg MCH unknown unkn own All T unknown 33.7 unknown g/dL MCHC unknown unkn own All T unknown 99.3 unknown fL MCV unknown unkn own All T unknown 0.4 10 unknown MONO_AUT unknown un known 3/UL O_ All MONOCYTES_AU unknown 0.4 10 unknown MO_ unknown unknown TO_ 3/UL All T unknown 10.5 unknown fL MPV unknown unkn own All T unknown 6.0 10 unknown NEUT_AUT unknown un known 3/UL O_ All NEUTROPHILS_ unknown 6.0 10 unknown NE_ unknown unknown AUTO_ 3/UL All T unknown 248 10 unknown PLT unknown unkn own 3/UL All T unknown 4.60 unknown RBC unknown unkn own 10 6/UL All T unknown 12.0 unknown % RDW unknown unkn own All T unknown 8.7 unknown WBC unknown unkn own X10 3/UL All red_blood_ce unknown 12.0 unknown % _1030 unknown unknown ll_distributi on_width All mean_corpusc unknown 33.5 unknown pg _1031 unknown unknown ular_hemoglob in_RBC All mean_corpusc unknown 33.7 unknown g/dL _17029 unknown unknown ular_hemoglob in_concentrat ion_rbc All neutrophil_c unknown 6.0 10 unknown _2418 unknown unknown ount_blood 3/UL All lymphocyte_c unknown 2.0 10 unknown _2420 unknown unknown ount_blood 3/UL All monocyte_cou unknown 0.4 10 unknown _2422 unknown unknown nt_blood 3/UL All basophil_cou unknown 0.1 10 unknown _2427 unknown unknown nt_blood 3/UL All mean_platele unknown 10.5 unknown fL _2784 unknown unknown t_volume All eosinophil_c unknown 0.2 10 unknown _285 unknown unknown ount_blood 3/UL All mean_corpusc unknown 99.3 unknown fL _315 unknown unknown ular_volume_R BC All blood_glucos unknown 135 unknown _3889 unknown unknown e_finger_stic k All Hematocrit_V unknown 45.7 unknown % _4544-3 unknow n unknown olume_Fractio n_of_Blood_by _Automated_co unt All blood_glucos unknown 135 unknown _5914-7 unknow n unknown e_finger_stic k All hematocrit_b unknown 45.7 unknown % _64 unknown unknown lood All hemoglobin_b unknown 15.4 unknown g/dL _65 unknown unknown lood All platelet_cou unknown 248 10 unknown _66 unknown unknown nt 3/UL All Leukocytes_v unknown 8.7 unknown _6690-2 unknow n unknown olume_in_Bloo X10 d_by_Automate 3/UL d_count All erythrocyte_ unknown 4.60 unknown _67 unknown unknown RBC_count 10 6/UL All leukocyte_co unknown 8.7 unknown _68 unknown unknown unt_blood X10 3/UL All Basophils_vo unknown 0.1 10 unknown _705-4 unknown unknown lume_in_Blood 3/UL _by_Manual_co unt All eosinophil_c unknown 0.2 10 unknown _712-0 unknown unknown ount_blood 3/UL All Hemoglobin_M unknown 15.4 unknown g/dL _718-7 unknown unknown ass_volume_in _Blood All lymphocyte_c unknown 2.0 10 unknown _732-8 unknown unknown ount_blood 3/UL All monocyte_cou unknown 0.4 10 unknown _743-5 unknown unknown nt_blood 3/UL All neutrophil_c unknown 6.0 10 unknown _752-6 unknown unknown ount_blood 3/UL All Platelet_mea unknown 10.5 unknown fL _776-5 unknown unknown n_volume_Enti tic_volume_in _Blood_by_Ree s-Micki All Platelets_vo unknown 248 10 unknown _777-3 unknown unknown lume_in_Blood 3/UL _by_Automated _count All MCH_Entitic_ unknown 33.5 unknown pg _785-6 unknown unknown mass_by_Autom ated_count All MCV_Entitic_ unknown 99.3 unknown fL _787-2 unknown unknown volume_by_Aut omated_count All Erythrocyte_ unknown 12.0 unknown % _788-0 unknown unknown distribution_ width_Ratio_b y_Automated_c ount All Erythrocytes unknown 4.60 unknown _789-8 unknown unknown _volume_in_Bl 10 6/UL ood_by_Automa ted_count All blood_glucos unknown 135 unknown _3889 unknown unknown e_finger_stic k All blood_glucos unknown 135 unknown _5914-7 unknow n unknown e_finger_stic k All HEMOGLOBIN_A unknown 5.4 unknown % A1c unknown unknown 1c_ All T unknown 5.4 unknown % A1c_ unknown unkn own All ALBUMIN_GLOB unknown 1.9 unknown AGRATIO unknow n unknown ULIN_RATIO All T unknown 4.3 unknown g/dL ALB unknown unkn own All T unknown 60 unknown U/L ALK_PHOS unknown un known All ALKALINE_PHO unknown 60 unknown U/L ALP unknown unknown SPHATASE All ALT_ALANINE_ unknown 31 unknown U/L ALT unknown unknown AMINOTRANSFER ASE All T unknown 31 unknown U/L ALT_SGPT unknown un known _ All T unknown 21 unknown U/L AST unknown unkn own All T unknown 1.9 unknown A_G_RATI unknown un known O All T unknown 0.1 10 unknown BASO_AUT unknown un known 3/UL O_ All BASOPHILS_AU unknown 0.1 10 unknown BA_ unknown unknown TO_ 3/UL All BILIRUBIN_TO unknown 0.6 unknown mg/dL BILIT unknown unknown CAITLIN All T unknown 18 unknown mg/dL BUN unknown unkn own All T unknown 9.2 unknown mg/dL CA unknown unkn own All T unknown 105 unknown mmol/L CL unknown unkn own All T unknown 25 unknown mmol/L CO2 unknown unkn own All T unknown 1.0 unknown mg/dL CREAT unknown unkn own All ESTIMATED_AV unknown 108 unknown mg/dL EAG unknown unknown ERAGE_GLUCOSE All T unknown 0.2 10 unknown EOS_AUTO unknown un known 3/UL _ All EOSINOPHILS_ unknown 0.2 10 unknown EO_ unknown unknown AUTO_ 3/UL All T unknown 108 unknown mg/dL EST.AVG. unknown un known GLUC All T unknown 10.0 unknown GAP unknown unkn own All GFR_-_MDRD unknown 79 unknown mL/min GFR unknown unknown All T unknown 79 unknown mL/min GFR_-_MD unknown un known RD All T unknown 2.3 unknown GLOB unknown unkn own All T unknown 114 unknown mg/dL GLU unknown unkn own All T unknown 45.7 unknown % HCT unknown unkn own All T unknown 15.4 unknown g/dL HGB unknown unkn own All T unknown 4.0 unknown meq/L K unknown unkn own All T unknown 2.0 10 unknown LYMPH_AU unknown un known 3/UL TO_ All LYMPHOCYTES_ unknown 2.0 10 unknown LY_ unknown unknown AUTO_ 3/UL All T unknown 33.5 unknown pg MCH unknown unkn own All T unknown 33.7 unknown g/dL MCHC unknown unkn own All T unknown 99.3 unknown fL MCV unknown unkn own All T unknown 0.4 10 unknown MONO_AUT unknown un known 3/UL O_ All MONOCYTES_AU unknown 0.4 10 unknown MO_ unknown unknown TO_ 3/UL All T unknown 10.5 unknown fL MPV unknown unkn own All T unknown 140 unknown mmol/L NA unknown unkn own All T unknown 6.0 10 unknown NEUT_AUT unknown un known 3/UL O_ All NEUTROPHILS_ unknown 6.0 10 unknown NE_ unknown unknown AUTO_ 3/UL All T unknown 248 10 unknown PLT unknown unkn own 3/UL All T unknown 6.6 unknown g/dL PRO_TOTA unknown un known L All T unknown 4.60 unknown RBC unknown unkn own 10 6/UL All T unknown 12.0 unknown % RDW unknown unkn own All T unknown 0.6 unknown mg/dL TOTAL_BI unknown un known LI All T unknown 8.7 unknown WBC unknown unkn own X10 3/UL All red_blood_ce unknown 12.0 unknown % _1030 unknown unknown ll_distributi on_width All mean_corpusc unknown 33.5 unknown pg _1031 unknown unknown ular_hemoglob in_RBC All calcium_seru unknown 9.2 unknown mg/dL _11 unknown unknown m All chloride_ser unknown 105 unknown mmol/L _13 unknown unknown um All albumin_glob unknown 1.9 unknown _146 unknown unknown ulin_ratio_se rum All sodium_serum unknown 140 unknown mmol/L _159 unknown unknown All mean_corpusc unknown 33.7 unknown g/dL _17029 unknown unknown ular_hemoglob in_concentrat ion_rbc All Alanine_amin unknown 31 unknown U/L _1742-6 unknow n unknown otransferase_ Enzymatic_act ivity_volume_ in_Serum_or_P lasma All Albumin_Mass unknown 4.3 unknown g/dL _1751-7 unknow n unknown _volume_in_Se rum_or_Plasma All Albumin_Glob unknown 1.9 unknown _1759-0 unknow n unknown ulin_Mass_Rat io_in_Serum_o r_Plasma All Alkaline_pho unknown 60 unknown U/L _1783-0 unknow n unknown sphatase_Enzy matic_activit y_volume_in_B lood All creatinine_s unknown 1.0 unknown mg/dL _18 unknown unknown bernabe All Estimated_Av unknown 108 unknown mg/dL _180195 unknow n unknown erage_Glucose All Anion_gap_4_ unknown 10.0 unknown _1863-0 unknow n unknown in_Serum_or_P lasma All Aspartate_am unknown 21 unknown U/L _1920-8 unknow n unknown inotransferas e_Enzymatic_a ctivity_volum e_in_Serum_or _Plasma All Bilirubin.to unknown 0.6 unknown mg/dL _1974-2 unknow n unknown tal_Mass_volu me_in_Serum_o r_Plasma All albumin_seru unknown 4.3 unknown g/dL _2 unknown unknown m All Calcium_Mole unknown 9.2 unknown mg/dL _1999-8 unknow n unknown s_volume_in_S erum_or_Plasm a All carbon_dioxi unknown 25 unknown mmol/L _8-9 unknow n unknown de_serum_tota l All Chloride_Mol unknown 105 unknown mmol/L _5-0 unknow n unknown es_volume_in_ Serum_or_Plas ma All Creatinine_M unknown 1.0 unknown mg/dL _2160-0 unknow n unknown ass_volume_in _Serum_or_Pla sma All Globulin_Mas unknown 2.3 unknown _2336-6 unknow n unknown s_volume_in_S bernabe All Glucose_Mass unknown 114 unknown mg/dL _2345-7 unknow n unknown _volume_in_Se rum_or_Plasma All neutrophil_c unknown 6.0 10 unknown _2418 unknown unknown ount_blood 3/UL All lymphocyte_c unknown 2.0 10 unknown _2420 unknown unknown ount_blood 3/UL All monocyte_cou unknown 0.4 10 unknown _2422 unknown unknown nt_blood 3/UL All basophil_cou unknown 0.1 10 unknown _2427 unknown unknown nt_blood 3/UL All Glucose_mean unknown 108 unknown mg/dL _27353-2 unkno wn unknown _value_Mass_v olume_in_Bloo d_Estimated_f rom_glycated_ hemoglobin All mean_platele unknown 10.5 unknown fL _2784 unknown unknown t_volume All anion_gap_se unknown 10.0 unknown _279 unknown unknown rum All hemoglobin_A unknown 5.4 unknown % _28 unknown unknown 1C_blood_as_o f_total_hemog lobin All eosinophil_c unknown 0.2 10 unknown _285 unknown unknown ount_blood 3/UL All Protein_Mass unknown 6.6 unknown g/dL _2885-2 unknow n unknown _volume_in_Se rum_or_Plasma All Sodium_Moles unknown 140 unknown mmol/L _2951-2 unknow n unknown _volume_in_Se rum_or_Plasma All alkaline_pho unknown 60 unknown U/L _3 unknown unknown sphatase_seru m All globulin_ser unknown 2.3 unknown _3059 unknown unknown um All Urea_nitroge unknown 18 unknown mg/dL _3094-0 unknow n unknown n_Mass_volume _in_Serum_or_ Plasma All mean_corpusc unknown 99.3 unknown fL _315 unknown unknown ular_volume_R BC All potassium_bl unknown 4.0 unknown meq/L _3483 unknown unknown ood All blood_glucos unknown 114 unknown mg/dL _3565 unknown unknown e All protein_tota unknown 6.6 unknown g/dL _36 unknown unknown l_serum All blood_glucos unknown 135 unknown _3889 unknown unknown e_finger_stic k All aspartate_am unknown 21 unknown U/L _39 unknown unknown inotransferas e_SGOT_serum All carbon_dioxi unknown 25 unknown mmol/L _3962 unknown unknown de_serum_tota l All alanine_amin unknown 31 unknown U/L _40 unknown unknown otransferase_ SGPT_serum All bilirubin_se unknown 0.6 unknown mg/dL _43 unknown unknown rum_total All Hematocrit_V unknown 45.7 unknown % _4544-3 unknow n unknown olume_Fractio n_of_Blood_by _Automated_co unt All Hemoglobin_A unknown 5.4 unknown % _4548-4 unknow n unknown 1c_Hemoglobin _total_in_Blo od_-_ All Glomerular_fi unknown 79 unknown mL/min _48642-3 unkno wn unknown ltration_rate _1.73_sq_M.pr edicted_among _non-blacks_V olume_Rate_Ar ea_in_Serum_P lasma_or_Bloo d_by_Creatini ne-based_form ula_MDRD_ All blood_glucos unknown 135 unknown _5914-7 unknow n unknown e_finger_stic k All potassium_bl unknown 4.0 unknown meq/L _6298-4 unknow n unknown ood All hematocrit_b unknown 45.7 unknown % _64 unknown unknown lood All hemoglobin_b unknown 15.4 unknown g/dL _65 unknown unknown lood All platelet_cou unknown 248 10 unknown _66 unknown unknown nt 3/UL All Glomerular_F unknown 79 unknown mL/min _66455 unknown unknown iltration_rat e All Leukocytes_v unknown 8.7 unknown _6690-2 unknow n unknown olume_in_Bloo X10 d_by_Automate 3/UL d_count All erythrocyte_ unknown 4.60 unknown _67 unknown unknown RBC_count 10 6/UL All leukocyte_co unknown 8.7 unknown _68 unknown unknown unt_blood X10 3/UL All Basophils_vo unknown 0.1 10 unknown _705-4 unknown unknown lume_in_Blood 3/UL _by_Manual_co unt All eosinophil_c unknown 0.2 10 unknown _712-0 unknown unknown ount_blood 3/UL All Hemoglobin_M unknown 15.4 unknown g/dL _718-7 unknown unknown ass_volume_in _Blood All lymphocyte_c unknown 2.0 10 unknown _732-8 unknown unknown ount_blood 3/UL All monocyte_cou unknown 0.4 10 unknown _743-5 unknown unknown nt_blood 3/UL All neutrophil_c unknown 6.0 10 unknown _752-6 unknown unknown ount_blood 3/UL All Platelet_mea unknown 10.5 unknown fL _776-5 unknown unknown n_volume_Enti tic_volume_in _Blood_by_Ree s-Micki All Platelets_vo unknown 248 10 unknown _777-3 unknown unknown lume_in_Blood 3/UL _by_Automated _count All MCH_Entitic_ unknown 33.5 unknown pg _785-6 unknown unknown mass_by_Autom ated_count All MCV_Entitic_ unknown 99.3 unknown fL _787-2 unknown unknown volume_by_Aut omated_count All Erythrocyte_ unknown 12.0 unknown % _788-0 unknown unknown distribution_ width_Ratio_b y_Automated_c ount All Erythrocytes unknown 4.60 unknown _789-8 unknown unknown _volume_in_Bl 10 6/UL ood_by_Automa ted_count All urea_nitroge unknown 18 unknown mg/dL _9 unknown unknown n_blood Vital Signs date measurement value source 20200805 BMI 31.39 kg/m2 20200805 BP_diastolic 77 mm[Hg] 20200805 BP_systolic 148 mm[Hg] 20200805 heart_rate 84 /min 20200805 height_metric 177.8 cm 20200805 height_standard 70 in 20200805 respiration_rate 18 /min 20200805 temperature_metric 36.56 C 20200805 temperature_standard 97.8 F 20200805 weight_metric 98.88 kg 20200805 weight_standard 218 lb 20200805 BMI 31.39 kg/m2 20200805 BP_diastolic 77 mm[Hg] 20200805 BP_systolic 148 mm[Hg] 20200805 heart_rate 84 /min 20200805 height_metric 177.8 cm 20200805 height_standard 70 in 20200805 respiration_rate 18 /min 20200805 temperature_metric 36.56 C 20200805 temperature_standard 97.8 F 20200805 weight_metric 98.88 kg 20200805 weight_standard 218 lb 20200805 BMI 31.39 kg/m2 20200805 BP_diastolic 77 mm[Hg] 20200805 BP_systolic 148 mm[Hg] 20200805 heart_rate 84 /min 20200805 height_metric 177.8 cm 20200805 height_standard 70 in 20200805 respiration_rate 18 /min 20200805 temperature_metric 36.56 C 20200805 temperature_standard 97.8 F 20200805 weight_metric 98.88 kg 20200805 weight_standard 218 lb 20200805 BMI 31.39 kg/m2 20200805 BP_diastolic 77 mm[Hg] 20200805 BP_systolic 148 mm[Hg] 20200805 heart_rate 84 /min 20200805 height_metric 177.8 cm 20200805 height_standard 70 in 20200805 respiration_rate 18 /min 20200805 temperature_metric 36.56 C 20200805 temperature_standard 97.8 F 20200805 weight_metric 98.88 kg 20200805 weight_standard 218 lb Social History date description facility [id number]
== END 2020-10-07 16:07 | disposition home or self-care (01) ==
LOC: SC 16:06
PROVIDERS: ATTEND Nurse Practitioner Family
DX: G47.33 Obstructive sleep apnea (adult) (pediatric) (principal); R09.02 Hypoxemia; E66.3 Overweight; Z68.29 Body mass index [BMI] 29.0-29.9, adult
CPT/HCPCS: 99212; 99213

== ENCOUNTER 2020-11-24 16:32 | Outpatient (CLI) | payer OTHER ==
--- NOTE | 2020-11-24 16:56 | SLEEP CARE CONSULTATION ---
Information from patient questionnaire entered by Sammie Paul. I have reviewed and concur with the information entered by Sammie Paul. This document represents the service I personally performed and the decisions made by , Yolanda Arredondo ARNP. History of Present Illness Service Date and Time: 11/24/2020 1632 Previous diagnosis: Mild, Obstructive Sleep Apnea-Hypopnea Syndrome AHI: 5.6 Reason for follow up: first compliance (Set up 10/17) Equipment obtained from: [employer] ([place]; got initial supplies) Mask style: Nasal (over the nose) Backup mask available: No (will keep old mask when replaced) Last cushion change: 1 month Prior sleep studies: No Year and Where: 2020 [facility] Type of Sleep Study: Home sleep study HPI additional information: DAVIN LERMA was diagnosed to have mild, AHI 5.6, obstructive sleep apnea- hypopnea syndrome and returned today for CPAP therapy first compliance follow- up. CPAP Compliance Data - Data Reviewed with Patient Average duration of nightly device use: 6 h 47 min Compliance rate %: 77 Current pressure setting (cmH2O): 4-15 (median 5.6, avg 8.1, max 9.6) Average residual AHI: 2.3 Subjective Missed days of use due to: reports: travel Patient concerns: reports: dry mouth, nose, throat (dry mouth, adjusted humidity; tried chin strap). denies: aerophagia, mask discomfort, air blowing in eyes, mask leak noise, condensation in mask/hose, nasal congestion, epista xis, other Observed to snore while using device: No Current pressure setting perceived as: comfortable On therapy, patient: reports: sleeping better, more rested overall. denies: awakening more refreshed, being more awake and alert during the day, drowsiness while driving Initial [place] Sleepiness Scale score: 9 (in 2020) Current [place] Sleepiness Scale score: 12 Allergies and Home Medications Home medication list reviewed: Yes (no new meds) Review of Systems Review of systems same as previous: Yes (no changes) Physical Exam Heart Rate: 98 O2 Saturation: 98 Height: 6 ft Weight: 219 lb Body Mass Index: 29.7 BMI Classification: Overweight Impression and Plan 1. Obstructive Sleep Apnea-Hypopnea Syndrome, mild, with fair treatment compliance and good apnea control. On CPAP therapy, the patient has better sleep quality and is more rested overall. He feels like he is getting used to it and has joined some support blogs online. He has had some oral dryness but has adjusted his humidity setting to make this comfortable. I will adjust his pressure to reflect pressure used over last month to 8-10 cmH2O. Patient's apnea severity and rationale for treatment to reduce apnea, improve sleep quality and reduce cardiovascular and cerebrovascular events was reviewed. * Change auto CPAP pressure to 8-10 cmH2O * Notify me if snoring with mask or feeling that the pressure is too much or too little * Attempt to lose weight * Call this office if any problems using CPAP * Return for follow up in 1-2 months, or sooner if concerns arise Counseling Topics: Spare mask, Weight loss health impact Visit Type: In Office Time Spent with Patient (minutes): 16 Provider Statement: I spent 100% of the Face to Face Visit with the patient with greater than 50% spent counseling the patient and coordination of care.
== END 2020-11-24 16:33 | disposition home or self-care (01) ==
LOC: SC 16:32
PROVIDERS: ATTEND Nurse Practitioner Family
DX: G47.33 Obstructive sleep apnea (adult) (pediatric) (principal); E66.3 Overweight; Z68.29 Body mass index [BMI] 29.0-29.9, adult
CPT/HCPCS: 99212

== ENCOUNTER 2021-02-09 16:18 | Outpatient (CLI) | payer OTHER ==
--- NOTE | 2021-02-09 17:07 | SLEEP CARE CONSULTATION ---
Information from patient questionnaire entered by Shaila Locke. I have reviewed and concur with the information entered by Shaila Locke. This document represents the service I personally performed and the decisions made by , Yolanda Arredondo ARNP. History of Present Illness Service Date and Time: 02/09/2021 1618 Previous diagnosis: Mild, Obstructive Sleep Apnea-Hypopnea Syndrome AHI: 5.6 (in 2020) Reason for follow up: other (2.5 month with pressure change) Equipment obtained from: [employer] (no more supplies yet; cannot get them to call back) Mask style: Nasal (over the nose) Backup mask available: No (will keep old mask when replaced) Prior sleep studies: Yes Year and Where: 2020 - [facility] [place] [facility] Type of Sleep Study: Home sleep study HPI additional information: ADVIN LERMA was diagnosed to have mild, AHI 5.6, obstructive sleep apnea- hypopnea syndrome and returned today for CPAP therapy 2.5 month pressure change follow-up. CPAP Compliance Data - Data Reviewed with Patient Average duration of nightly device use: 4 hr 23 min Compliance rate %: 22 (60 days) Current pressure setting (cmH2O): 8-10 Humidity settin Average residual AHI: 1.3 Subjective Missed days of use due to: reports: mask issues, travel, other (allergies) Patient concerns: reports: air blowing in eyes, mask leak noise, condensation in mask/hose, nasal congestion, dry mouth, nose, throat. denies: aerophagia, mask discomfort, epistaxis, other (d) Observed to snore while using device: No Current pressure setting perceived as: too high On therapy, patient: reports: sleeping better, awakening more refreshed, being more awake and alert during the day, more rested overall. denies: drowsiness while driving Initial [place] Sleepiness Scale score: 9 (in 2020) Current [place] Sleepiness Scale score: 6 Allergies and Home Medications Home medication list reviewed: Yes (no changes) Review of Systems Review of systems same as previous: Yes (no changes) Physical Exam Heart Rate: 83 O2 Saturation: 97 Height: 6 ft Weight: 218 lb Body Mass Index: 29.5 BMI Classification: Overweight Impression and Plan 1. Obstructive Sleep Apnea-Hypopnea Syndrome, mild, with poor treatment compliance and good apnea control. On CPAP therapy, the patient has better sleep quality and is more rested overall. Patient felt that after the pressure was changed at his last appointment that the pressure was too high and will wake him up when it increases shortly after he falls asleep. I will adjust his pressure to 4-9 cmH2O which should still control his apneas but not given that surge of pressure as he is going to sleep. Patient has been on vacation for 5 weeks off and on since he was last here. He states when [place] was [place] he had a lot of trouble with his allergies and was unable to wear the mask due to his nasal congestion. He started taking Claritin at dinnertime but this did not seem to make a difference in his nose being congested. He has tried adjusting his humidifier up, down, using ice in the reservoir and changing it to cool instead of heated humidification. He also took off the heated hose but then got a lot of condensation in the hose. He just got so frustrated he stopped using it altogether. He would like to try a nasal pillows mask to see if it would fit and seal better. He tried to call his [employer] company about changing to a nasal pillows mask but they never returned his phone calls. He has not gotten any more supplies but he has been paying his bill that they sent him every month. Patient's apnea severity and rationale for treatment to reduce apnea, improve sleep quality and reduce cardiovascular and cerebrovascular events was reviewed. * Change auto CPAP pressure to 4-9 cmH2O * Notify me if snoring with mask or feeling that the pressure is too much or too little * Attempt to lose weight * Call this office if any problems using CPAP * Return for follow up in 1-2 months, or sooner if concerns arise Counseling Topics: Spare mask Visit Type: In Office Time Spent with Patient (minutes): 28 Provider Statement: I spent 100% of the Face to Face Visit with the patient with greater than 50% spent counseling the patient and coordination of care.
== END 2021-02-09 16:19 | disposition home or self-care (01) ==
LOC: SC 16:18
PROVIDERS: ATTEND Nurse Practitioner Family
DX: G47.33 Obstructive sleep apnea (adult) (pediatric) (principal)
CPT/HCPCS: 99212; 99213

== ENCOUNTER 2022-11-29 08:30 | Outpatient (CLI) | payer OTHER ==
--- NOTE | 2022-11-29 13:48 | XRAY Report ---
PROCEDURE: Elbow 3 View RT INDICATIONS: LATERAL EPICONDYLITIS,RIGHT TECHNIQUE: 3 views of the elbow were acquired. COMPARISON: None. FINDINGS: Bones: No fractures or dislocations. No suspicious bony lesions. Soft tissues: Mild effusion. No suspicious soft tissue calcifications or masses. IMPRESSION: Mild effusion. No visualized acute fracture or dislocation. However, occult injury cannot be excluded . Recommend short interval imaging follow-up in 7-10 days as clinically indicated for additional eval uation. Reviewed by: Larissa Cooley MD on 11/29/2022 1:47 PM PDT Approved by: Larissa Cooley MD on 11/29/2022 1:47 PM PDT Station ID: [id number]
== END 2022-11-29 08:31 | disposition home or self-care (01) ==
LOC: DI 08:30
PROVIDERS: ATTEND Physician Assistant
DX: M25.421 Effusion, right elbow (principal); M77.11 Lateral epicondylitis, right elbow

== ENCOUNTER 2022-12-21 10:31 | Outpatient (CLI) | payer OTHER ==
[2022-12-21 10:50] LABS: BASOPHILS % (AUTO) 0.7 %; EOSINOPHILS # (AUTO) 0.1 10^3/uL (0.0-0.7); EOSINOPHILS % (AUTO) 2.6 %; HCT - HEMATOCRIT 43.7 % (42.0-52.0); HGB - HEMOGLOBIN 15.1 g/dL (14.0-18.0); LYMPHOCYTES # (AUTO) 1.4 10^3/uL (1.5-3.5); LYMPHOCYTES % (AUTO) 26.2 %; MEAN CORPUSCULAR HEMOGLOBIN 32.8 pg (27.0-31.0); MEAN CORPUSCULAR HGB CONC 34.6 g/dL (32.0-36.0); MEAN CORPUSCULAR VOLUME 94.8 fL (80.0-94.0); MONOCYTES # (AUTO) 0.4 10^3/uL (0.0-1.0); MONOCYTES % (AUTO) 6.8 %; NEUTROPHILS # (AUTO) 3.4 10^3/uL (1.5-6.6); NEUTROPHILS % (AUTO) 63.3 %; PLT - PLATELET COUNT 206 10^3/uL (130-450); RED BLOOD COUNT 4.61 10^6/uL (4.70-6.10); RED CELL DISTRIBUTION WIDTH 11.8 % (12.0-15.0); WHITE BLOOD COUNT 5.4 x10^3/uL (4.8-10.8)
[2022-12-21 11:01] LABS: RHEUMATOID FACTOR NEGATIVE (Negative)
[2022-12-21 11:08] LABS: ALBUMIN/GLOBULIN RATIO 1.3 (1.0-2.2); ALKALINE PHOSPHATASE 66 IU/L (42-121); ALT ALANINE AMINOTRANSFERASE 23 IU/L (10-60); AST ASPARTATE AMINOTRANSFERASE 17 IU/L (10-42); BILIRUBIN,TOTAL 0.8 mg/dL (0.2-1.0); BUN - BLOOD UREA NITROGEN 23 mg/dL (6-20); CARBON DIOXIDE - CO2 28 mmol/L (21-32); CHLORIDE 109 mmol/L (101-111); CHOL/HDL RATIO 3.9 (<5.0); CHOLESTEROL 201 mg/dL; GFR - MDRD 78 (>89); GLUCOSE 97 mg/dL (70-100); HDL CHOLESTEROL 51 mg/dL; LDL CHOLESTEROL,CALCULATED 130 mg/dL; LDL/HDL RATIO 2.5 (<3.6); POTASSIUM 4.2 mmol/L (3.5-5.0); SODIUM 142 mmol/L (135-145); TRIGLYCERIDES 100 mg/dL; URIC ACID 5.5 mg/dL (2.6-7.2); VLDL CHOLESTEROL 20 mg/dL
--- NOTE | 2022-12-21 16:33 | XRAY Report ---
PROCEDURE: Knee 4 View LT INDICATIONS: KNEE PAIN LEFT TECHNIQUE: 4 views of the left knee(s) were acquired. COMPARISON: None. FINDINGS: Bones: No fractures or dislocations. No suspicious bony lesions. Mild osteoarthritis changes. Mild joint space narrowing with weightbearing in the medial femorotibial compartment bilaterally, left gre ater than right. Soft tissues: Moderate knee joint effusion. No suspicious soft tissue calcifications or masses. IMPRESSION: 1. Mild tricompartmental osteoarthritis. 2. Moderate knee joint effusion. Reviewed by: Alejandra Phillips MD on 12/21/2022 4:31 PM PDT Approved by: Alejandra Phillips MD on 12/21/2022 4:31 PM PDT Station ID: [id number]
--- NOTE | 2022-12-22 11:59 | XRAY Report ---
PROCEDURE: Finger(s) RT INDICATIONS: FINGER PAIN, RIGHT TECHNIQUE: AP hand, 2 views of the second finger(s) acquired. COMPARISON: None. FINDINGS: Bones: No fractures or dislocations. No suspicious bony lesions. Mild degenerative joint disease. Soft tissues: No suspicious soft tissue calcifications or masses. IMPRESSION: 1. No acute bony abnormality. 2. Mild degenerative joint disease. 3. If clinical symptoms persist, consider advanced imaging such as MRI for follow-up evaluation. Reviewed by: Alejandra Phillips MD on 12/22/2022 11:58 AM PDT Approved by: Alejandra Phillips MD on 12/22/2022 11:58 AM PDT Station ID: [id number]
== END 2022-12-21 10:32 | disposition home or self-care (01) ==
LOC: DI 10:31
PROVIDERS: ATTEND Physician Assistant
DX: M79.644 Pain in right finger(s) (principal); M25.562 Pain in left knee; I10 Essential (primary) hypertension; Z13.220 Encounter for screening for lipoid disorders; Z80.42 Family history of malignant neoplasm of prostate; Z12.5 Encounter for screening for malignant neoplasm of prostate; M19.90 Unspecified osteoarthritis, unspecified site; M77.11 Lateral epicondylitis, right elbow; M19.041 Primary osteoarthritis, right hand; M17.12 Unilateral primary osteoarthritis, left knee; M25.462 Effusion, left knee
CPT/HCPCS: 36415; 80053; 80061; 83721; 84153; 84550; 85025; 85651; 86200; 86430

== ENCOUNTER 2023-01-28 08:30 | Outpatient (CLI) | payer OTHER ==
--- NOTE | 2023-01-28 09:17 | Ultrasound Report ---
PROCEDURE: Aorta Screening INDICATIONS: HIST OF SMOKING TECHNIQUE: Real time scanning was performed of the aorta and iliac arteries, with image documentatio n. COMPARISON: None. FINDINGS: Aorta: Proximal aortic diameter measures 2.7 x 2.7 cm. Mid-aorta measures 2.9 x 2.6 cm. Distal aor tic diameter is 2 x 2 by 1.9 cm. Iliac arteries: Right common iliac artery measures 1.3 x 1.1 cm. Left common iliac artery measures 1.2 x 1.1 cm. IMPRESSION: No abdominal aortic aneurysm. Recommended intervals for follow-up imaging of ectatic aortas and abdominal aortic aneurysms, per ACR consensus guidelines: 2.5-2.9 cm: 5 years 3.0-3.4 cm: 3 years 3.5-3.9 cm: 2 years 4.0-4.4 cm: 1 year 4.5-4.9 cm: 6 months + endovascular referral 5.0-5.5 cm: 3-6 months + endovascular referral Reviewed by: Demetrio Sánchez MD on 01/28/2023 9:16 AM PDT Approved by: Demetrio Sánchez MD on 01/28/2023 9:16 AM PDT Station ID: [id number]
--- NOTE | 2023-01-28 10:01 | CT Report ---
PROCEDURE: Low Dose Lung Cancer Screen INDICATIONS: HISTORY OF SMOKING TECHNIQUE: A CT scan of the chest was performed. Intravenous contrast media was not administered. Images were re corded and evaluated at appropriate window settings. Reformats: axial MIP of the chest, coronal and s agittal. For radiation dose reduction, the following was used: automated exposure control, adjustment of mA and/or kV according to patient size. COMPARISON: None. FINDINGS: Image quality: Excellent. Prior cancer history: Unsure. Lungs and pleura: No pleural effusions. No pneumothorax. There is a 6 mm anterior left lower lobe pu lmonary nodule seen on image 247/series 4. No other suspicious pulmonary nodules or masses or nodular ity. No focal Mediastinum: Heart size is normal. No pericardial effusion. No large vessel abnormality. No mediastin al adenopathy by size criteria. Chest wall and lower neck: Thyroid is unremarkable. No axillary or supraclavicular adenopathy by size . Bones: No aggressive osseous abnormality. Upper Abdomen: Unremarkable. IMPRESSION: No acute cardiopulmonary abnormalities. Solitary 6 mm anterior left lower lobe pulmonary nodule. Lung RAD: 3 - Probably Benign. Recommendation: Continue screening in 6 Months with LDCT Non-Lung Significant Findings: None. Reviewed by: Christoph Gallegos MD on 01/28/2023 9:00 AM ABHI Approved by: Christoph Gallegos MD on 01/28/2023 9:00 AM LAANNMARIE Station ID: [id number]
== END 2023-01-28 08:31 | disposition home or self-care (01) ==
LOC: DI 08:30
PROVIDERS: ATTEND Physician Assistant
DX: Z12.2 Encounter for screening for malignant neoplasm of respiratory organs (principal); Z87.891 Personal history of nicotine dependence; R91.1 Solitary pulmonary nodule; Z13.6 Encounter for screening for cardiovascular disorders